=== PATIENT | female | born 1950 ===

== ENCOUNTER 2018-10-18 12:08 | Outpatient (CLI) | payer OTHER ==
[~2018-10-18] VITALS: Ht 165.1 cm; Wt 58.1 kg
== END 2018-10-18 12:20 | disposition home or self-care (01) ==
LOC: OFIC 805 12:08
DX: H60.8X3 Other otitis externa, bilateral (principal); J30.89 Other allergic rhinitis

== ENCOUNTER 2021-08-23 10:40 | Outpatient (CLI) | payer OTHER | END 2021-08-23 10:45 | disposition home or self-care (01) | LOC: PPH VACUNA 10:40 | PROVIDERS: ATTEND Emergency Medicine Pediatric Emergency Medicine | DX: Z23 Encounter for immunization (principal) ==

== ENCOUNTER 2024-02-05 09:45 | Outpatient (CLI) | payer OTHER | END 2024-02-05 09:58 | disposition home or self-care (01) | LOC: RAD 09:45 | PROVIDERS: ATTEND Internal Medicine Cardiovascular Disease | DX: I10 Essential (primary) hypertension (principal) ==